=== PATIENT | male | born 1955 | race Caucasian/White ===

== ENCOUNTER 2022-01-16 10:11 | Inpatient (IN) ==
[2022-01-16 10:57] LABS: Basophils % 0.3 %; Eosinophils # 0.1 K/mcL (0.0-0.6); Eosinophils % 0.7 %; Hematocrit 24.7 % (37.5-50.1); Hemoglobin 7.9 g/dL (12.9-16.9); Immature Granulocytes % 1.5 % (0-4); Lymphocytes # 1.1 K/mcL (0.6-4.6); Lymphocytes % 7.2 %; Mean Corpuscular Hemoglobin 32.8 pg (28.0-33.3); Mean Corpuscular Volume 102.5 fL (83.0-100.0); Monocytes # 1.6 K/mcL (0.0-1.3); Monocytes % 10.5 %; Nucleated Red Blood Cells 0.4 /100 WBC (0); Platelet Count 133 K/mcL (140-400); Red Blood Count 2.41 M/mcL (4.19-5.50); Red Cell Distribution Width 21.4 % (11.5-14.5); Segmented Neutrophils % 79.8 %
[2022-01-16 11:18] LABS: BUN/Creatinine Ratio 24 (6-26); Blood Urea Nitrogen 58 mg/dL (8-23); Carbon Dioxide 27 mEq/L (23-29); Chloride 99 mEq/L (98-107); Glucose 127 mg/dL (70-105); Osmolality,Calculated 302 (280-300); Potassium 4.4 mEq/L (3.5-5.1); Sodium 137 mEq/L (136-145); Troponin I < 0.03 ng/mL (< 0.04)
[2022-01-16] MEDS ORDERED: Ondansetron ODT 4 MG TAB.RAPDIS SL PRN (14:42)
[2022-01-16] MEDS ORDERED: Naloxone 0.4 MG/ML INJ IVP PRN (14:42)
[2022-01-16] MEDS: Albumin 25% 25gram/100mL 25 GM/100 ML IV.SOLN IVPB SCH (14:44)
[2022-01-16 14:48] LABS: RBC,Peritoneal Fluid 272000 RBC/mcL
[2022-01-16 15:32] LABS: Appearance of Peritoneal Fl BLOODY (Clear)
[2022-01-16 15:33] LABS: Basophils,Peritoneal Fluid 0 %
[2022-01-16] MEDS: Ipratropium/Albuterol Neb 3 ML IH SCH ×2 (15:58→22:07)
[2022-01-16] MEDS: cefTRIAXone 2,000 MG in 0.9 % Sodium Chloride Mini Bag 100 ML IVPB SCH (16:40)
[2022-01-16] MEDS: Pantoprazole 40 MG VIAL IVP SCH (16:41)
[2022-01-16 17:13] LABS: INR 1.2; Prothrombin Time 13.3 Seconds (9.4-12.1)
[2022-01-16 17:25] LABS: Albumin 3.5 g/dL (3.5-5.7); Albumin/Globulin Ratio 1.6 (1.1-2.2); Bilirubin,Direct 0.1 mg/dL (0.0-0.2); Bilirubin,Indirect 0.2 mg/dL (0.0-1.0); Bilirubin,Total 0.3 mg/dL (0.3-1.0); Globulin 2.2 g/dL (2.4-3.5); Total Protein 5.7 g/dL (6.4-8.9)
[2022-01-17] MEDS: Albumin 25% 25gram/100mL 25 GM/100 ML IV.SOLN IVPB SCH ×2 (00:42→08:36)
[2022-01-17] MEDS: Ipratropium/Albuterol Neb 3 ML IH SCH ×4 (04:08→21:17)
[2022-01-17 05:02] LABS: Basophils # 0.1 K/mcL (0.0-0.2); Basophils % 0.3 %; Eosinophils # 0.2 K/mcL (0.0-0.6); Eosinophils % 1.3 %; Hematocrit 23.6 % (37.5-50.1); Hemoglobin 7.4 g/dL (12.9-16.9); Immature Granulocytes % 1.3 % (0-4); Lymphocytes # 1.8 K/mcL (0.6-4.6); Lymphocytes % 10.7 %; Mean Corpuscular HGB Conc 31.4 g/dL (31.6-35.5); Mean Corpuscular Hemoglobin 32.2 pg (28.0-33.3); Mean Corpuscular Volume 102.6 fL (83.0-100.0); Mean Platelet Volume 12.5 fL (9.4-12.4); Monocytes # 1.8 K/mcL (0.0-1.3); Monocytes % 10.6 %; Nucleated Red Blood Cells 0.2 /100 WBC (0); Platelet Count 125 K/mcL (140-400); Red Cell Distribution Width 21.2 % (11.5-14.5); Segmented Neutrophils % 75.8 %; White Blood Count 17.2 K/mcL (4.3-11.1)
[2022-01-17 05:07] LABS: INR 1.2; Prothrombin Time 13.1 Seconds (9.4-12.1)
[2022-01-17 05:19] LABS: Albumin 3.6 g/dL (3.5-5.7); Albumin/Globulin Ratio 1.8 (1.1-2.2); Bilirubin,Indirect 0.3 mg/dL (0.0-1.0); Bilirubin,Total 0.3 mg/dL (0.3-1.0); Calcium 8.5 mg/dL (8.6-10.3); Total Protein 5.6 g/dL (6.4-8.9)
[2022-01-17] MEDS: Pantoprazole 40 MG VIAL IVP SCH (05:31)
[2022-01-17] MEDS ORDERED: *HR* OxyCODONE Immed Rel 5 MG TABLET PO PRN (10:04)
[2022-01-17] MEDS ORDERED: Venlafaxine XR (24 HR) 75 MG CAP.ER.24H PO SCH (10:15)
[2022-01-17] MEDS ORDERED: VENLAFAXINE HCL 150 MG PO SCH (10:15)
[2022-01-17] MEDS ORDERED: NON-FORMULARY MEDICATION 1 EACH EACH (Omeprazole 20 MG Tablet.Dr) PO SCH (10:15)
[2022-01-17] MEDS: Pyridoxine (B-6) 50 MG TABLET PO SCH (11:22)
[2022-01-17] MEDS: Furosemide 20 MG TABLET PO SCH (11:22)
[2022-01-17] MEDS: carBAMazepine 200 MG TABLET PO SCH ×2 (11:24→15:54)
[2022-01-17] MEDS ORDERED: *HR* LORazepam 2 MG/ML VIAL IVP PRN (14:32)
[2022-01-17] MEDS: cefTRIAXone 2,000 MG in 0.9 % Sodium Chloride Mini Bag 100 ML IVPB SCH (15:15)
[2022-01-17] MEDS ORDERED: Albumin 25% 25gram/100mL 25 GM/100 ML IV.SOLN IVPB ONE (15:30)
[2022-01-17] MEDS: *HR* HYDROmorphone (PF) 1 MG/ML SYRINGE IVP PRN ×2 (15:51→22:56)
[2022-01-17 15:57] LABS: Total Protein,Peritoneal Fluid 3.5 g/dL
[2022-01-17 17:35] LABS: RBC,Peritoneal Fluid 294000 RBC/mcL
[2022-01-17 17:36] LABS: Appearance of Peritoneal Fl BLOODY (Clear)
[2022-01-17 19:38] LABS: Basophils,Peritoneal Fluid 0 %
[2022-01-17] MEDS: QUEtiapine Fumarate 100 MG TABLET PO SCH (20:46)
[2022-01-17] MEDS: Budesonide/Formoterol 80/4.5 1 PUFF INH IH SCH (21:17)
[2022-01-18 03:40] LABS: Basophils % 0.2 %; Eosinophils # 0.1 K/mcL (0.0-0.6); Eosinophils % 0.6 %; Hematocrit 22.4 % (37.5-50.1); Hemoglobin 7.1 g/dL (12.9-16.9); Immature Granulocytes % 1.6 % (0-4); Lymphocytes # 1.7 K/mcL (0.6-4.6); Lymphocytes % 8.7 %; Mean Corpuscular HGB Conc 31.7 g/dL (31.6-35.5); Mean Corpuscular Volume 104.2 fL (83.0-100.0); Mean Platelet Volume 12.7 fL (9.4-12.4); Monocytes # 1.4 K/mcL (0.0-1.3); Monocytes % 7.3 %; Neutrophils # 15.8 K/mcL (1.6-8.9); Nucleated Red Blood Cells 0.2 /100 WBC (0); Platelet Count 135 K/mcL (140-400); Red Blood Count 2.15 M/mcL (4.19-5.50); Red Cell Distribution Width 21.3 % (11.5-14.5); Segmented Neutrophils % 81.6 %; White Blood Count 19.4 K/mcL (4.3-11.1)
[2022-01-18 03:44] LABS: INR 1.1; Prothrombin Time 12.8 Seconds (9.4-12.1)
[2022-01-18] MEDS: Ipratropium/Albuterol Neb 3 ML IH SCH ×4 (03:54→22:39)
[2022-01-18 04:06] LABS: Albumin 3.3 g/dL (3.5-5.7); Albumin/Globulin Ratio 1.9 (1.1-2.2); Bilirubin,Direct 0.1 mg/dL (0.0-0.2); Bilirubin,Indirect 0.2 mg/dL (0.0-1.0); Bilirubin,Total 0.3 mg/dL (0.3-1.0); Calcium 8.5 mg/dL (8.6-10.3); Globulin 1.7 g/dL (2.4-3.5); Potassium 4.7 mEq/L (3.5-5.1)
[2022-01-18 04:22] LABS: Folate 18.6 ng/mL (3.0-16.0)
[2022-01-18] MEDS: Furosemide 20 MG TABLET PO SCH (08:36)
[2022-01-18] MEDS: Lactobacillus 1 EACH CAP.SPRINK PO SCH (08:36)
[2022-01-18] MEDS: Cholecalciferol (D-3) 1,000 UNIT (25MCG) TABLET PO SCH (08:36)
[2022-01-18] MEDS: Venlafaxine XR (24 HR) 75 MG CAP.ER.24H PO SCH (08:37)
[2022-01-18] MEDS: Cyanocobalamin (B-12) 1,000 MCG TABLET PO SCH (08:37)
[2022-01-18] MEDS: Pyridoxine (B-6) 50 MG TABLET PO SCH (08:37)
[2022-01-18] MEDS: carBAMazepine 200 MG TABLET PO SCH ×2 (08:39→17:01)
[2022-01-18] MEDS: *HR* OxyCODONE Immed Rel 5 MG TABLET PO PRN ×3 (08:57→17:00)
[2022-01-18] MEDS ORDERED: polyethylene glycoL 3350 17 GM POWD.PACK PO PRN (10:03)
[2022-01-18] MEDS: Budesonide/Formoterol 80/4.5 1 PUFF INH IH SCH ×2 (10:16→22:39)
[2022-01-18] MEDS: Sennosides/Docusate Sodium TABLET PO SCH ×2 (11:55→20:26)
[2022-01-18] MEDS: Pantoprazole 40 MG VIAL IVP SCH (12:11)
[2022-01-18] MEDS: cefTRIAXone 2,000 MG in 0.9 % Sodium Chloride Mini Bag 100 ML IVPB SCH (14:57)
[2022-01-18] MEDS: *HR* OxyCODONE ER (12 HR) 10 MG TABLET PO SCH (19:06)
[2022-01-18] MEDS: QUEtiapine Fumarate 100 MG TABLET PO SCH (20:26)
[2022-01-19] MEDS: *HR* OxyCODONE Immed Rel 5 MG TABLET PO PRN ×2 (03:20→13:24)
[2022-01-19] MEDS: Ipratropium/Albuterol Neb 3 ML IH SCH ×4 (03:41→22:48)
[2022-01-19] MEDS: *HR* OxyCODONE ER (12 HR) 10 MG TABLET PO SCH ×2 (05:47→16:27)
[2022-01-19] MEDS: *HR* HYDROmorphone (PF) 1 MG/ML SYRINGE IVP PRN (08:36)
[2022-01-19] MEDS: Lactobacillus 1 EACH CAP.SPRINK PO SCH (08:39)
[2022-01-19] MEDS: Sennosides/Docusate Sodium TABLET PO SCH (08:39)
[2022-01-19] MEDS: Cholecalciferol (D-3) 1,000 UNIT (25MCG) TABLET PO SCH (08:39)
[2022-01-19] MEDS: Venlafaxine XR (24 HR) 75 MG CAP.ER.24H PO SCH (08:39)
[2022-01-19] MEDS: Furosemide 20 MG TABLET PO SCH (08:39)
[2022-01-19] MEDS: Pantoprazole 40 MG VIAL IVP SCH (08:39)
[2022-01-19] MEDS: carBAMazepine 200 MG TABLET PO SCH ×2 (08:39→16:27)
[2022-01-19] MEDS: Pyridoxine (B-6) 50 MG TABLET PO SCH (08:39)
[2022-01-19] MEDS: Cyanocobalamin (B-12) 1,000 MCG TABLET PO SCH (08:40)
[2022-01-19] MEDS: Budesonide/Formoterol 80/4.5 1 PUFF INH IH SCH ×2 (10:25→22:48)
[2022-01-19 13:33] VITALS: PULSE 100
[2022-01-19 13:43] VITALS: TEMP 98.4
[2022-01-19] MEDS: cefTRIAXone 2,000 MG in 0.9 % Sodium Chloride Mini Bag 100 ML IVPB SCH (14:33)
[2022-01-19 15:22] VITALS: BP 102/59
[2022-01-19 16:04] VITALS: O2SAT 95
[2022-01-20 02:42] LABS: Fluid Source for Albumin PERITONEAL FL
== END 2022-01-19 16:47 | disposition expired | DRG 432 ==
LOC: EMEROOARM 10:11 → 3ANU 10:11 → SUATTDRO 13:45 → 2NENU 14:44 → SUATTDRO 01-17 10:08
PROVIDERS: ADMIT Hospitalist; ATTEND Internal Medicine